=== PATIENT | male | born 1990 | race Caucasian/White ===

== ENCOUNTER 2019-06-07 04:04 | Emergency (ER) | payer BC, OTHER ==
[2019-06-07 04:11] VITALS: RESP 18; TEMP 98.4
[2019-06-07] MEDS ORDERED: ONDANSETRON 4 MG/2 ML VIAL IVP STA (04:26)
[2019-06-07] MEDS ORDERED: MAG HYDROX/AL HYDROX/SIMETH 30 ML, HYOSCYAMINE ELIXIR 10 ML, LIDOCAINE VISCOUS 2% 10 ML PO STA ×3 (04:27)
--- NOTE | 2019-06-07 04:37 | ED ---
Abdominal Pain HPI - General Chief Complaint: Abdominal Pain Stated Complaint: Abd Pain Time Seen by Provider: 06/07/19 04:14 Source: patient Mode of arrival: ambulatory Limitations: no limitations - History of Present Illness MD Complaint: abdominal pain Onset/Timin -: week(s) Location: epigastric Radiation: none Migration to: no migration Severity: moderate Quality: aching, burning Consistency: constant Improves With: nothing Worsens With: nothing Associated Symptoms: nausea, vomiting - Related Data Previous Rx's Medication Instructions Recorded Famotidine [Pepcid] 20 mg PO BID #14 tablet 06/07/19 Allergies Allergy/AdvReac Type Severity Reaction Status Date / Time No Known Allergies Allergy Verified 06/07/19 04:11 Review of Systems ROS Statement: Those systems with pertinent positive or pertinent negative responses have been documented in the HPI. ROS Other: All systems not noted in ROS Statement are negative. Constitutional: Denies: fever, chills Respiratory: Denies: cough, dyspnea Cardiovascular: Denies: chest pain, palpitations, orthopnea, edema, syncope Gastrointestinal: Reports: abdominal pain, nausea. Denies: vomiting, diarrhea, constipation, melena, hematochezia Genitourinary: Denies: dysuria, hematuria Musculoskeletal: Denies: back pain Skin: Denies: rash Neurological: Denies: headache, weakness, numbness Past Medical History Additional Past Medical History / Comment(s): ITP History of Any Multi-Drug Resistant Organisms: None Reported Past Surgical History: No Surgical Hx Reported Past Psychological History: No Psychological Hx Reported Smoking Status: Never smoker Past Alcohol Use History: None Reported Past Drug Use History: None Reported General Exam Limitations: no limitations General appearance: alert, in no apparent distress Head exam: Present: atraumatic, normocephalic Eye exam: Present: normal appearance. Absent: scleral icterus, conjunctival injection ENT exam: Present: normal oropharynx Neck exam: Present: normal inspection Respiratory exam: Present: normal lung sounds bilaterally. Absent: respiratory distress, wheezes, rales, rhonchi, stridor Cardiovascular Exam: Present: regular rate, normal rhythm, normal heart sounds. Absent: systolic murmur, diastolic murmur, rubs, gallop GI/Abdominal exam: Present: soft, tenderness. Absent: distended, guarding, rebound, rigid, mass Extremities exam: Present: normal inspection, normal capillary refill. Absent: pedal edema, calf tenderness Back exam: Present: normal inspection. Absent: CVA tenderness (R), CVA tenderness (L) Neurological exam: Present: alert Skin exam: Present: warm, dry, intact, normal color. Absent: rash Course Vital Signs 06/07/19 04:09 Temperature 98.4 F Pulse Rate 91 Respiratory 18 Rate Blood Pressure 141/99 O2 Sat by Pulse 99 Oximetry Medical Decision Making - Lab Data Result diagrams: 06/07/19 04:34 06/07/19 04:34 Lab Results 06/07/19 06/07/19 06/07/19 Range/Units 04:34 04:34 06:30 WBC 7.2 (3.8-10.6) k/uL RBC 5.28 (4.30-5.90) m/uL Hgb 16.1 (13.0-17.5) gm/dL Hct 46.7 (39.0-53.0) % MCV 88.5 (80.0-100.0) fL MCH 30.5 (25.0-35.0) pg MCHC 34.5 (31.0-37.0) g/dL RDW 12.7 (11.5-15.5) % Plt Count 141 L (150-450) k/uL Neutrophils % 70 % Lymphocytes % 16 % Monocytes % 7 % Eosinophils % 5 % Basophils % 1 % Neutrophils # 5.0 (1.3-7.7) k/uL Lymphocytes # 1.1 (1.0-4.8) k/uL Monocytes # 0.5 (0-1.0) k/uL Eosinophils # 0.3 (0-0.7) k/uL Basophils # 0.1 (0-0.2) k/uL Sodium 143 (137-145) mmol/L Potassium 3.9 (3.5-5.1) mmol/L Chloride 106 (98-107) mmol/L Carbon Dioxide 28 (22-30) mmol/L Anion Gap 9 mmol/L BUN 13 (9-20) mg/dL Creatinine 0.89 (0.66-1.25) mg/dL Est GFR (CKD-EPI)AfAm >90 (>60 ml/min/1.73 sqM) Est GFR (CKD-EPI)NonAf >90 (>60 ml/min/1.73 sqM) Glucose 95 (74-99) mg/dL Calcium 9.1 (8.4-10.2) mg/dL Total Bilirubin 0.4 (0.2-1.3) mg/dL AST 27 (17-59) U/L ALT 19 L (21-72) U/L Alkaline Phosphatase 93 (38-126) U/L Total Protein 7.5 (6.3-8.2) g/dL Albumin 4.5 (3.5-5.0) g/dL Amylase 66 (30-110) U/L Lipase 78 (23-300) U/L Urine Color Yellow Urine Appearance Clear (Clear) Urine pH 5.5 (5.0-8.0) Ur Specific [employer] 1.030 (1.001-1.035) Urine Protein Trace H (Negative) Urine Glucose (UA) Negative (Negative) Urine Ketones Negative (Negative) Urine Blood Negative (Negative) Urine Nitrite Negative (Negative) Urine Bilirubin Negative (Negative) Urine Urobilinogen 2.0 (<2.0) mg/dL Ur Leukocyte Esterase Negative (Negative) Disposition Clinical Impression: Gastritis Disposition: HOME SELF-CARE Condition: Good Instructions (If sedation given, give patient instructions): Gastritis (ED) Prescriptions: Famotidine [Pepcid] 20 mg PO BID #14 tablet Is patient prescribed a controlled substance at d/c from ED?: No Referrals: Farrukh Mienr MD [Primary Care Provider] - 1-2 days
[2019-06-07 04:43] LABS: Basophils # (A) 0.1 k/uL (0-0.2); Basophils % (A) 1 %; Eosinophils # (A) 0.3 k/uL (0-0.7); Eosinophils % (A) 5 %; HCT 46.7 % (39.0-53.0); HGB 16.1 gm/dL (13.0-17.5); Lymphocytes # (A) 1.1 k/uL (1.0-4.8); Lymphocytes % (A) 16 %; MCH 30.5 pg (25.0-35.0); MCHC 34.5 g/dL (31.0-37.0); MCV 88.5 fL (80.0-100.0); Mean Platelet Volume 10.1; Monocytes # (A) 0.5 k/uL (0-1.0); Monocytes % (A) 7 %; Neutrophils % (A) 70 %; Platelet Count 141 k/uL (150-450); RBC 5.28 m/uL (4.30-5.90); RDW 12.7 % (11.5-15.5); WBC 7.2 k/uL (3.8-10.6)
[2019-06-07 04:55] LABS: ALT 19 U/L (21-72); AST 27 U/L (17-59); African American GFR (CKD) >90 (>60 ml/min/1.73 sqM); Albumin 4.5 g/dL (3.5-5.0); Alkaline Phosphatase 93 U/L (38-126); Amylase 66 U/L (30-110); Anion Gap 9 mmol/L; Blood Urea Nitrogen 13 mg/dL (9-20); Calcium 9.1 mg/dL (8.4-10.2); Carbon Dioxide 28 mmol/L (22-30); Chloride 106 mmol/L (98-107); Glucose 95 mg/dL (74-99); Potassium 3.9 mmol/L (3.5-5.1); Sodium 143 mmol/L (137-145); Total Bilirubin 0.4 mg/dL (0.2-1.3); Total Protein 7.5 g/dL (6.3-8.2)
[2019-06-07 06:42] LABS: Appearance,Urine Clear (Clear); Bilirubin,Urine Negative (Negative); Blood,Urine Negative (Negative); Color,Urine Yellow; Glucose,Urine (UA) Negative (Negative); Ketones,Urine Negative (Negative); Leukocyte Esterase,Urine Negative (Negative); Nitrite,Urine Negative (Negative); PH, Urine 5.5 (5.0-8.0); Protein,Urine Trace (Negative)
[2019-06-07 07:22] VITALS: BP 121/77; PULSE 65
== END 2019-06-07 07:12 | disposition home or self-care (01) ==
LOC: EC 04:04
DX: K29.70 Gastritis, unspecified, without bleeding (principal)
CPT/HCPCS: 36415; 80053; 82150; 83690; 85025; 81003; 99284; 96374; J2405

== ENCOUNTER 2019-07-15 09:53 | Day surgery (SDC) | payer OTHER ==
[2019-07-13 13:57] VITALS: BMI 34.2
[~2019-07-15 09:53] MED LIST: LACTATED RINGERS 1,000 ML IV SCH
[2019-07-15 10:19] VITALS: TEMP 98.3
[2019-07-15] MEDS ORDERED: LIDOCAINE 1% 20 ML VIAL (10MG/ML) FOR IV START INTRADERMA ONE (10:24)
[2019-07-15] MEDS ORDERED: PROPOFOL 10 MG/ML 20 ML VIAL IV ONE (10:40)
[2019-07-15] MEDS ORDERED: fentaNYL (PF) 50 MCG/ML 2 ML AMP ONE (10:40)
[2019-07-15] MEDS ORDERED: MIDAZOLAM 2 MG/2 ML VIAL ONE (10:40)
[2019-07-15] MEDS ORDERED: LIDOCAINE 1% INJ 10MG/ML (20 ML MDV) ONE (10:40)
[2019-07-15 11:10] VITALS: PULSE 94
--- NOTE | 2019-07-15 11:13 | P.PCN ---
Date of Procedure: 07/15/19 Description of Procedure: BRIEF HISTORY: 29-year-old male with a medical history significant for abdominal pain, refractory reflux, epigastric pain and belching. Currently on twice daily Protonix therapy as well as Pepcid at night. PROCEDURE PERFORMED: Esophagogastroduodenoscopy with biopsy. PREOPERATIVE DIAGNOSIS: GERD, epigastric pain. ESTIMATED BLOOD LOSS: Minimal. IV sedation per anesthesia. PROCEDURE: After informed consent was obtained, the patient was brought into the endoscopy unit. IV sedation was administered by Anesthesia under continuous monitoring. Initially the Olympus GIF-190 video endoscope was inserted into the mouth. Esophagus intubated without any difficulty. It was gradually advanced into the stomach and duodenum and carefully examined. The bulb and the second part of the duodenum appeared normal, except for some mild scattered erythema suggestive of duodenitis biopsies taken. The scope at this time was withdrawn to the stomach, adequately insufflated with air, and upon careful examination, mucosa of the antrum, body, cardia and the fundus appeared normal, except for some mild punctate erythema in the antrum and body suggestive of mild gastritis biopsies taken. The scope was then withdrawn into the esophagus. The GE junction was loca jojo at 37 cm from the incisors and biopsied. The esophagus appeared normal and biopsied to rule out eosinophilic esophagitis . There were no erosions or ulcerations seen and the patient tolerated the procedure well. IMPRESSION: 1. Mild gastritis antrum and body, biopsied . 2. Mild duodenitis, biopsied. 3. Biopsies of the GE junction and midesophagus. RECOMMENDATIONS: The findings of this examination were discussed with the patient and his mother. Okay to resume diet. Okay to resume medications. Await pathology from biopsies. Follow up in gastroenterology clinic as previously scheduled.
[2019-07-15 11:23] VITALS: BP 117/85; RESP 18
== END 2019-07-15 11:59 | disposition home or self-care (01) ==
LOC: ORWHC2ENDO 09:53
PROVIDERS: ATTEND Internal Medicine
DX: K21.9 Gastro-esophageal reflux disease without esophagitis (principal); K29.80 Duodenitis without bleeding; K29.50 Unspecified chronic gastritis without bleeding
CPT/HCPCS: 43239; 88305; J2250; J2001; J3010; J2704

== ENCOUNTER → 2022-06-11 | Outpatient (CLI) | payer MEDICAID ==
[2022-06-11 14:43] LABS: ALT 11 U/L (10-49); AST 14 U/L (14-35); African American GFR (CKD) 140.8 (60.0-200.0); Albumin 4.6 g/dL (3.8-4.9); Albumin/Globulin Ratio 2.43 (1.60-3.17); Alkaline Phosphatase 70 U/L (41-126); Amylase 83 U/L (23-121); BUN/Creat Ratio 18.73 Ratio (12.00-20.00); Blood Urea Nitrogen 14.5 mg/dL (9.0-27.0); C Reactive Protein <0.30 mg/dL (0.00-0.80); Calcium 9.3 mg/dL (8.7-10.3); Carbon Dioxide 30.7 mmol/L (20.0-27.5); Chloride 102 mmol/L (96-109); Globulin 1.9 g/dL (1.6-3.3); Glucose 86 mg/dL (70-110); Lipase 95 U/L (14-60); Non-African American GFR(CKD) 121.5 (60.0-200.0); Potassium 4.3 mmol/L (3.5-5.5); Sodium 143 mmol/L (135-145); Total Protein 6.5 g/dL (6.2-8.2)
[2022-06-11 15:40] LABS: Basophils # (A) 0.04 X 10*3/uL (0.00-0.10); Basophils % (A) 0.9 %; Eosinophils % (A) 2.3 %; HCT 41.9 % (39.6-50.0); Immature Grans, Automated 0.2 %; Lymphocytes # (A) 1.72 X 10*3/uL (0.90-5.00); Lymphocytes % (A) 40.1 %; MCH 30.4 pg (27.0-32.0); MCHC 33.4 g/dL (32.0-37.0); MCV 91.1 fL (80.0-97.0); Mean Platelet Volume 12.8 fL (9.5-12.2); NRBC Per 100 WBC 0 /100 WBCS (0.0-0.0); Neutrophils # (A) 1.82 X 10*3/uL (1.80-7.70); Neutrophils % (A) 42.5 %; Platelet Count 130 X 10*3/uL (140-440); RDW 13.2 % (11.5-14.5); WBC 4.29 X 10*3/uL (4.50-10.00)
== END | disposition home or self-care (01) ==
LOC: LABWHC1 08:05
PROVIDERS: ATTEND Family Medicine
DX: Z00.00 Encounter for general adult medical examination without abnormal findings (principal); R10.84 Generalized abdominal pain; R11.10 Vomiting, unspecified; R63.4 Abnormal weight loss
CPT/HCPCS: 36415; 80053; 82150; 83690; 84443; 85025; 86140

== ENCOUNTER → 2022-06-20 | Outpatient (CLI) | payer MEDICAID ==
--- NOTE | 2022-06-20 09:47 | US ---
EXAMINATION TYPE: US abdomen complete DATE OF EXAM: 06/20/2022 COMPARISON: NONE CLINICAL HISTORY: R10.84 Generalized abdominal pain,. TECHNIQUE: Multiple sonographic images of the abdomen are obtained. 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 No acute abdomen ultrasound abnormality. 2. Limitation due to bowel gas.
[2022-06-20 14:44] LABS: Amylase 65 U/L (23-121); Lipase 34 U/L (14-60)
== END | disposition home or self-care (01) ==
LOC: RADUSWWP 08:08
PROVIDERS: ATTEND Family Medicine
DX: R10.84 Generalized abdominal pain (principal); R74.8 Abnormal levels of other serum enzymes; R14.3 Flatulence; R11.10 Vomiting, unspecified; R63.4 Abnormal weight loss
CPT/HCPCS: 76700; 82150; 83690

== ENCOUNTER → 2022-07-18 | Outpatient (CLI) | payer MEDICAID ==
--- NOTE | 2022-07-18 12:24 | NM ---
EXAMINATION TYPE: NM gastric emptying static DATE OF EXAM: 07/18/2022 COMPARISON: NONE HISTORY: R10.84 generalized abdominal pain Following administration of 2 mCi Tc 99m Sulfur Colloid with 8oz Ensure, projection images of the abd omen were obtained 1min minutes post ingestion. Patient Emptying Values 1 Hour 48 % 2 Hours 87 % 3 Hours 99 % 4 Hours 100 % Gastroesophageal reflux: None IMPRESSION: Gastric emptying: Normal Gastroesophageal reflux: None Gastric emptying normal percentage values: 30 minutes: <70% of retention (> 30% emptying) suggests abnormally fast emptying. 60 minutes: <90% retention (>10% emptying) is normal; less than 30% retention (>70% emptying) suggest s abnormally rapid emptying. 90 minutes: <65% retention (> 35% emptying) is normal. 120 minutes: <60% retention (> 40% emptying) is normal. 180 minutes: <30% retention (> 70% emptying) is normal. Gastric emptying T-1/2: Solid: The normal range is 60-105 minutes Liquid only: Normal range is 10-45 minutes. Liquid only-children: At 60 minutes, normal range is 44-58 % . Liquid only-infants: At 60 minutes, normal range is 32-64 %. Additional references: Gastric Emptying Scintigraphy [email or web address]://[email or web address]
== END | disposition home or self-care (01) ==
LOC: RADNMMAIN 06:54
PROVIDERS: ATTEND Family Medicine
DX: R10.84 Generalized abdominal pain (principal); R63.4 Abnormal weight loss; R11.10 Vomiting, unspecified
CPT/HCPCS: 78264; A9541

== ENCOUNTER → 2022-08-05 | Outpatient (CLI) | payer MEDICAID ==
--- NOTE | 2022-08-05 10:13 | NM ---
EXAMINATION TYPE: NM hepatobiliary w EF DATE OF EXAM: 08/05/2022 9:06 AM COMPARISON: Gastric emptying 07/18/2022 CLINICAL INDICATION:Male, 32 years old with history of R10.84 abdominal pain; TECHNIQUE: The patient was given 5.38 mCi of Technetium 99m-Mebrofenin as a radiotracer and multiple scintigraphic images were obtained of the abdomen. Gallbladder function was also assessed after the administration of 4 mL of Sincalide (cholecystokinin) and additional scintigraphic images were obtain ed of the abdomen. A region of interest was drawn over the gallbladder and a timing activity curve wa s generated. The gallbladder ejection fraction was calculated. FINDINGS: Normal uptake of radiotracer was identified within the liver with excretion into the hepatic and comm on biliary ducts within 240 seconds. There was normal progressive washout of the liver over the cours e of the study. Radiotracer uptake within the gallbladder at 2040 seconds as well as small bowel acti vity was identified at 240 seconds . Maximum calculated gallbladder ejection fraction is: 62% at 30 minutes (Normal gallbladder ejection fraction is > 35%) IMPRESSION: 1. Normal hepatobiliary scan. 2. Normal ejection fraction.
== END | disposition home or self-care (01) ==
LOC: RADNMMAIN 07:03
PROVIDERS: ATTEND Family Medicine
DX: R10.84 Generalized abdominal pain (principal)
CPT/HCPCS: 78226; A9537